=== PATIENT | female | born 1985 | race Caucasian/White ===

== ENCOUNTER 2016-10-23 14:03 | Emergency (ER) | payer MEDICAID ==
[~2016-10-23 14:03] MED LIST: CITA20TA9 PO; CYCL5TAB PO; DISU500T2 PO; RISP0.5T3 PO; SERT25TA3 PO
== END 2016-10-23 17:39 | disposition left against medical advice (07) ==
LOC: ED 17:34
DX: R07.81 Pleurodynia (principal); Z53.21 Procedure and treatment not carried out due to patient leaving prior to being seen by health care provider

== ENCOUNTER 2016-12-11 23:40 | Emergency (ER) | payer MEDICAID ==
[~2016-12-11] VITALS: Ht 162.6 cm; Wt 55.7 kg
[2016-12-11 23:49] VITALS: BP 115/77
== END 2016-12-12 00:41 | disposition home or self-care (01) ==
LOC: ED 23:59
DX: R07.0 Pain in throat (principal)
CPT/HCPCS: 99283

== ENCOUNTER 2016-12-12 12:55 | Emergency (ER) | payer MEDICAID ==
[~2016-12-12] VITALS: Ht 162.6 cm; Wt 55.5 kg
[2016-12-12 13:04] VITALS: BP 113/80
[2016-12-12] MEDS ORDERED: DEXAMETHASONE 4 MG TABLET PO ONE (13:30)
[2016-12-12] MEDS ORDERED: DEXAMETHASONE 4 MG TABLET ONE (13:43)
== END 2016-12-12 14:13 | disposition home or self-care (01) ==
LOC: ED 14:07
DX: J02.0 Streptococcal pharyngitis (principal)
CPT/HCPCS: 99283

== ENCOUNTER 2017-01-08 19:04 | Emergency (ER) | payer MEDICAID | END 2017-01-08 20:04 | LOC: ED 19:04 | DX: M79.641 Pain in right hand (principal) ==

== ENCOUNTER 2017-02-13 15:45 | Emergency (ER) | payer MEDICAID ==
[~2017-02-13] VITALS: Ht 162.6 cm; Wt 54.0 kg
[2017-02-13 15:49] VITALS: BP 112/74
== END 2017-02-13 17:11 | disposition home or self-care (01) ==
LOC: ED 16:40
DX: H60.591 Other noninfective acute otitis externa, right ear (principal)
CPT/HCPCS: 99283

== ENCOUNTER 2017-07-18 22:15 | Emergency (ER) | payer MEDICAID ==
[~2017-07-18] VITALS: Ht 162.6 cm; Wt 52.6 kg
[2017-07-18] MEDS ORDERED: HYDROcodone/APAP 5/325 TABLET PO ONE (23:00)
[2017-07-18] MEDS ORDERED: HYDROcodone/APAP 5/325 TABLET ONE (23:02)
[2017-07-18] MEDS ORDERED: THIA50TA PO (23:43)
[2017-07-18] MEDS ORDERED: MULT-516 PO (23:44)
[2017-07-18] MEDS ORDERED: ASCO100T5 PO (23:44)
[2017-07-19 00:31] VITALS: BP 111/75
== END 2017-07-19 00:34 | disposition home or self-care (01) ==
LOC: ED 23:59
DX: S20.212A Contusion of left front wall of thorax, initial encounter (principal); G89.11 Acute pain due to trauma; X58.XXXA Exposure to other specified factors, initial encounter; Y93.89 Activity, other specified; Y92.89 Other specified places as the place of occurrence of the external cause; Y99.8 Other external cause status
CPT/HCPCS: 71010; 99284

== ENCOUNTER 2017-09-25 17:17 | Emergency (ER) | payer MEDICAID ==
[~2017-09-25] VITALS: Ht 162.6 cm; Wt 56.0 kg
[~2017-09-25 17:17] MED LIST changes: +ASCO100T5 PO; +MULT-516 PO; +THIA50TA PO
[2017-09-25 17:30] VITALS: BP 122/76
[2017-09-25 18:29] LABS: RAPID INFLUENZA A Negative (Negative); RAPID INFLUENZA B Negative (Negative)
== END 2017-09-25 19:20 | disposition home or self-care (01) ==
LOC: ED 18:40
DX: J02.8 Acute pharyngitis due to other specified organisms (principal)
CPT/HCPCS: 71046; 87400; 99285

== ENCOUNTER 2017-11-08 19:44 | Emergency (ER) | payer MEDICAID ==
[~2017-11-08] VITALS: Ht 162.6 cm; Wt 57.5 kg
[2017-11-08 19:56] VITALS: BP 117/72
== END 2017-11-08 21:04 | disposition home or self-care (01) ==
LOC: ED 21:00
DX: L20.84 Intrinsic (allergic) eczema (principal); F10.220 Alcohol dependence with intoxication, uncomplicated; F17.210 Nicotine dependence, cigarettes, uncomplicated
CPT/HCPCS: 99283

== ENCOUNTER 2017-12-09 18:18 | Emergency (ER) | payer MEDICAID ==
[~2017-12-09] VITALS: Ht 162.6 cm; Wt 62.0 kg
[2017-12-09 18:21] VITALS: BP 111/70
[2017-12-09] MEDS ORDERED: DIPH,PERTUSS(ACELL),TET VAC/PF 0.5 ML IM-VACC ONE ×2 (18:59→19:00)
[2017-12-09] MEDS ORDERED: SILVER SULF. CRM 1% , 25GM ONE (18:59)
[2017-12-09] MEDS ORDERED: SILVER SULF. CRM 1% , 25GM TP ONE (19:00)
[2017-12-09] MEDS ORDERED: ACETAMINOPHEN 500 MG TABLET ONE (19:12)
[2017-12-09] MEDS ORDERED: IBUPROFEN 200 MG TABLET ONE (19:13)
[2017-12-09] MEDS ORDERED: ACETAMINOPHEN 500 MG TABLET PO ONE (19:30)
[2017-12-09] MEDS ORDERED: IBUPROFEN 200 MG TABLET PO ONE (19:30)
== END 2017-12-09 19:22 | disposition home or self-care (01) ==
LOC: ED 19:21
DX: T21.22XA Burn of second degree of abdominal wall, initial encounter (principal); T22.111A Burn of first degree of right forearm, initial encounter; T31.0 Burns involving less than 10% of body surface; F10.20 Alcohol dependence, uncomplicated; Z88.8 Allergy status to other drugs, medicaments and biological substances; X12.XXXA Contact with other hot fluids, initial encounter; Y93.89 Activity, other specified; Y92.89 Other specified places as the place of occurrence of the external cause; Y99.8 Other external cause status
CPT/HCPCS: 16025; 90471; 90715; 99284

== ENCOUNTER 2018-01-08 13:25 | Emergency (ER) | payer MEDICAID ==
[~2018-01-08] VITALS: Ht 162.6 cm; Wt 60.0 kg
[2018-01-08 13:34] VITALS: BP 119/80
[2018-01-08] MEDS ORDERED: DIPH,PERTUSS(ACELL),TET VAC/PF 0.5 ML IM-VACC ONE ×2 (13:55→14:00)
[2018-01-08] MEDS ORDERED: LIDOCAINE-MPF 2% ,5ML ONE (13:55)
[2018-01-08] MEDS ORDERED: LIDOCAINE 2%, 20ML SQ ONE (14:00)
[2018-01-08] MEDS ORDERED: BACITRACIN ZINC OINT 500U/GM, 0.9 GM ONE (14:37)
== END 2018-01-08 14:43 | disposition home or self-care (01) ==
LOC: ED 14:00
DX: S61.210A Laceration without foreign body of right index finger without damage to nail, initial encounter (principal); W25.XXXA Contact with sharp glass, initial encounter; Y93.89 Activity, other specified; Y99.8 Other external cause status; Y92.89 Other specified places as the place of occurrence of the external cause
CPT/HCPCS: 96372; 99283; J3490

== ENCOUNTER 2018-09-17 15:36 | Emergency (ER) | payer MEDICAID ==
[~2018-09-17] VITALS: Ht 162.6 cm; Wt 55.0 kg
[~2018-09-17 15:36] MED LIST changes: -THIA50TA PO; +THIA50TA4 PO
[2018-09-17] MEDS ORDERED: LORazepam 2 MG/ML, 1ML IVPush ONE (16:00)
[2018-09-17] MEDS ORDERED: LORazepam 2 MG/ML, 1ML ONE (16:22)
[2018-09-17 16:25] LABS: ALANINE AMINOTRANSFERASE 83 U/L (12-78); ALBUMIN 3.8 g/dL (3.4-5.0); ANION GAP 7 mmol/L (5-15); CALCIUM 8.7 mg/dL (8.5-10.1); CHLORIDE 109 mmol/L (98-107); CREATININE 0.67 mg/dL (0.55-1.02)
[2018-09-17 16:27] LABS: ALKALINE PHOSPHATASE 114 U/L (45-117); BILIRUBIN,TOTAL 0.9 mg/dL (0.2-1.0); TOTAL PROTEIN 7.7 g/dL (6.4-8.2)
[2018-09-17] MEDS ORDERED: CHLORDIAZEPOXIDE 25 MG CAPSULE ONE (16:47)
[2018-09-17 16:59] LABS: HCG UR SG 1.021 (1.003-1.030)
[2018-09-17] MEDS ORDERED: CHLORDIAZEPOXIDE 25 MG CAPSULE PO ONE (17:00)
[2018-09-17 17:08] LABS: MICROSCOPIC INDICATED
[2018-09-17 17:19] LABS: MEAN CORPUSCULAR HEMOGLOBIN 35.7 pg (27.0-34.8); MEAN CORPUSCULAR HGB CONC 33.4 g/dL (32.4-35.8); MEAN CORPUSCULAR VOLUME 106.6 fL (80-100); MEAN PLATELET VOLUME 8.4 fL (7.4-10.4); RED BLOOD COUNT 3.62 x10^6/uL (3.82-5.3); RED CELL DISTRIBUTION WIDTH 14.8 % (9.6-15.2)
[2018-09-17 17:19] LABS: CULTURE INDICATED? NO
[2018-09-17 17:21] LABS: PLATELET COUNT 69 x10^3/uL (130-400)
[2018-09-17 17:23] LABS: MD YES
[2018-09-17 17:28] LABS: BASOS#(MANUAL) 0.04 x10^3/uL (0-0.1); BASOS% (MANUAL) 2 % (0-1); EOS#(MANUAL) 0.02 x10^3/uL (0.0-0.4); EOS% (MANUAL) 1 % (1-7); LYMPH#(MANUAL) 0.88 x10^3/uL (1-3.4); LYMPHS% (MANUAL) 42 % (22-44); MONOS#(MANUAL) 0.19 x10^3/uL (0.3-2.7); MONOS% (MANUAL) 9 % (2-9); REACTIVE LYMPHS # (MANUAL) 0.02 x10^3/uL (0-0); REACTIVE LYMPHS % (MANUAL) 1 % (0-0); SEG#(MANUAL) 0.95 x10^3/uL (1.8-6.8); SEGS% (MANUAL) 45 % (42-75)
[2018-09-17 17:29] LABS: <PLATELET ESTIMATE> DECREASED; <PLT MORPHOLOGY> NORMAL PLT MORPH; ANISOCYTOSIS 1+; TOXIC GRAN 1+
--- NOTE | 2018-09-17 17:46 | NUR ---
pt resting on gurney, rr even and unlabored. vss. pt denies needs or pain att. awaiting lab and imaging results
--- NOTE | 2018-09-17 18:16 | NUR ---
PTS CHART UP FOR RECHECK
--- NOTE | 2018-09-17 19:34 | NUR ---
REPORT FROM ESTRADA HAIRSTON. PT RESTING IN ROOM. NO NEEDS AT THIS TIME.VSS. CALL LIGHT WITHIN REACH.
[2018-09-17 19:35] VITALS: BP 112/78
== END 2018-09-17 20:57 | disposition home or self-care (01) ==
LOC: ED 19:20
DX: F10.239 Alcohol dependence with withdrawal, unspecified (principal); F10.229 Alcohol dependence with intoxication, unspecified; R45.4 Irritability and anger; R45.1 Restlessness and agitation; Z88.8 Allergy status to other drugs, medicaments and biological substances
CPT/HCPCS: 36415; 80053; 80307; 81001; 81025; 85025; 96374; 99283; J2060

== ENCOUNTER 2018-11-13 20:40 | Emergency (ER) | payer MEDICAID ==
[~2018-11-13] VITALS: Ht 167.6 cm; Wt 58.6 kg
[2018-11-13 21:38] LABS: ALANINE AMINOTRANSFERASE 57 U/L (12-78); ANION GAP 12 mmol/L (5-15); CALCIUM 9.3 mg/dL (8.5-10.1); CHLORIDE 92 mmol/L (98-107); CREATININE 0.82 mg/dL (0.55-1.02)
[2018-11-13 21:42] LABS: ALKALINE PHOSPHATASE 90 U/L (45-117); BILIRUBIN,TOTAL 1.1 mg/dL (0.2-1.0); TOTAL PROTEIN 8.5 g/dL (6.4-8.2)
[2018-11-13 21:43] LABS: MEAN CORPUSCULAR HEMOGLOBIN 33.2 pg (27.0-34.8); MEAN CORPUSCULAR HGB CONC 34.6 g/dL (32.4-35.8); MEAN CORPUSCULAR VOLUME 95.8 fL (80-100); MEAN PLATELET VOLUME 8.8 fL (7.4-10.4); PLATELET COUNT 60 x10^3/uL (130-400); RED CELL DISTRIBUTION WIDTH 13.4 % (9.6-15.2)
[2018-11-13 21:44] LABS: MD YES
[2018-11-13] MEDS ORDERED: TRAZ-137 PO (21:47)
[2018-11-13] MEDS ORDERED: GABA-827 PO (21:47)
--- NOTE | 2018-11-13 21:50 | NUR ---
STATES VAGINAL BLEEDING SINCE THIS AM. MONITORS APPLIED, SIDERAILS UP X2, CALL LIGHT WITHIN REACH
[2018-11-13] MEDS ORDERED: LORazepam 2 MG/ML, 1ML IVPush ONE (22:30)
[2018-11-13] MEDS ORDERED: POTASSIUM CHLORIDE 20 MEQ in SODIUM CHLORIDE 0.9% 250 ML IV ONE (22:30)
[2018-11-13] MEDS ORDERED: MAGNESIUM SULFATE 1 GM, THIAMINE 100 MG, FOLIC ACID 1 MG, MVI ADULT 10 ML in SODIUM CHL... IV ONE (22:30)
[2018-11-13] MEDS ORDERED: SODIUM CHLORIDE FLUSH 10ML SYR IVF ONE (22:30)
[2018-11-13] MEDS ORDERED: ONDANSETRON 2MG/ML, 2ML IVPush ONE (22:30)
[2018-11-13] MEDS ORDERED: POTASSIUM CHLORIDE 20 MEQ TAB.ER.PRT PO ONE (22:30)
[2018-11-13 22:34] LABS: LYMPHS% (MANUAL) 41 % (22-44); MONOS#(MANUAL) 0.49 x10^3/uL (0.3-2.7); MONOS% (MANUAL) 8 % (2-9); REACTIVE LYMPHS # (MANUAL) 0.18 x10^3/uL (0-0); REACTIVE LYMPHS % (MANUAL) 3 % (0-0); SEG#(MANUAL) 2.93 x10^3/uL (1.8-6.8); SEGS% (MANUAL) 48 % (42-75)
[2018-11-13] MEDS ORDERED: LORazepam 2 MG/ML, 1ML ONE (22:34)
[2018-11-13] MEDS ORDERED: ONDANSETRON 2MG/ML, 2ML ONE (22:34)
[2018-11-13] MEDS ORDERED: POTASSIUM CHLORIDE 20 MEQ TAB.ER.PRT ONE (22:35)
[2018-11-13 22:36] LABS: <PLATELET ESTIMATE> DECREASED; <PLT MORPHOLOGY> NORMAL PLT MORPH; <RBC MORPHOLOGY> NORMAL
--- NOTE | 2018-11-13 22:40 | NUR ---
PT MEDICATE NAE MONIQUE
[2018-11-13 23:10] LABS: MICROSCOPIC INDICATED
[2018-11-13 23:11] LABS: CULTURE INDICATED? YES
--- NOTE | 2018-11-14 00:26 | NUR ---
PT RESTING CALM, IV FLUIDS INFUSING. MONITORS IN PLACE, CALL ALEX HUNTER, DENIES NEEDS
[2018-11-14] MEDS ORDERED: POTASSIUM CHLORIDE 20 MEQ TAB.ER.PRT ONE (00:44)
[2018-11-14] MEDS ORDERED: POTASSIUM CHLORIDE 20 MEQ TAB.ER.PRT PO ONE (01:00)
--- NOTE | 2018-11-14 01:53 | NUR ---
PT RESTING WITH EES CLOSED, NADN, EQUAL CHEST RISE/FALL OBSERVED, IV FLUIDS INFUSING, CALL LIGHT WITHIN REACH
[2018-11-14 04:11] VITALS: BP 99/67
--- NOTE | 2018-11-14 04:12 | NUR ---
PT RESTING WITH EES CLOSED, NAD, EQUAL CHEST RISE/FALL OBSERVED. IV FLUIDS INFUSING, MONITORS IN PLACE, SIDERAILS UP X2, CALL LIGHT WITHIN REACH
== END 2018-11-14 04:25 | disposition home or self-care (01) ==
LOC: ED 22:58
DX: N93.8 Other specified abnormal uterine and vaginal bleeding (principal); D69.49 Other primary thrombocytopenia; R45.4 Irritability and anger; E87.6 Hypokalemia; R11.2 Nausea with vomiting, unspecified; F10.239 Alcohol dependence with withdrawal, unspecified; F17.210 Nicotine dependence, cigarettes, uncomplicated; Z88.8 Allergy status to other drugs, medicaments and biological substances
CPT/HCPCS: 36415; 76830; 80053; 81001; 83735; 84703; 85025; 87077; 87086; 87186; 96365; 96366; 96368; 96375; 99284; J2060; J2405; J3411; J3475; J3480; J7030; J7050

== ENCOUNTER 2019-01-03 18:09 | Emergency (ER) | payer MEDICAID ==
[~2019-01-03] VITALS: Ht 162.6 cm; Wt 66.2 kg
[~2019-01-03 18:09] MED LIST changes: +GABA-827 PO; +TRAZ-137 PO
[2019-01-03 18:27] VITALS: BP 116/73
[2019-01-03 19:13] LABS: BASOPHILS # (AUTO) 0.02 x10^3/uL (0-0.1); BASOPHILS % (AUTO) 1 % (0-1); EOSINOPHILS % (AUTO) 2 % (1-7); LYMPHOCYTES # (AUTO) 1.51 x10^3/uL (1-3.4); LYMPHOCYTES % (AUTO) 33 % (22-44); MD NO; MEAN CORPUSCULAR HEMOGLOBIN 32.2 pg (27.0-34.8); MEAN CORPUSCULAR HGB CONC 33.4 g/dL (32.4-35.8); MEAN CORPUSCULAR VOLUME 96.2 fL (80-100); MEAN PLATELET VOLUME 10.8 fL (7.4-10.4); MONOCYTES % (AUTO) 7 % (2-9); NEUTROPHILS % (AUTO) 57 % (42-75); PLATELET COUNT 125 x10^3/uL (130-400); RED BLOOD COUNT 3.86 x10^6/uL (3.82-5.3); RED CELL DISTRIBUTION WIDTH 13.5 % (9.6-15.2)
[2019-01-03 19:16] LABS: ALBUMIN 3.8 g/dL (3.4-5.0); ANION GAP 7 mmol/L (5-15); CALCIUM 8.9 mg/dL (8.5-10.1); CHLORIDE 109 mmol/L (98-107)
--- NOTE | 2019-01-03 20:04 | NUR ---
PT BROUGHT BACK TO ROOM, PHYSICIAN AT BEDSIDE.
[2019-01-03 20:27] LABS: INTERNATIONAL NORMALIZED RATIO 1.06 (0.93-1.1); PROTHROMBIN TIME 11.1 Seconds (9.6-11.5)
[2019-01-03] MEDS ORDERED: ACETAMINOPHEN 500 MG TABLET PO ONE (20:30)
[2019-01-03] MEDS ORDERED: IBUPROFEN 600 MG TABLET PO ONE (20:30)
[2019-01-03 20:48] LABS: MICROSCOPIC AUTO
[2019-01-03 20:49] LABS: CULTURE INDICATED? NO
--- NOTE | 2019-01-03 20:53 | NUR ---
PT REFUSED TYLENOL. DR MCCURDY NOTIFIED.
--- NOTE | 2019-01-03 21:20 | NUR ---
Patient/Caregiver given discharge instructions and they have confirmed that they understand the instructions. Patient ambulatory with steady gait.
== END 2019-01-03 21:22 | disposition home or self-care (01) ==
LOC: ED 20:08
DX: N93.8 Other specified abnormal uterine and vaginal bleeding (principal); N92.4 Excessive bleeding in the premenopausal period; F10.10 Alcohol abuse, uncomplicated; F32.9 Major depressive disorder, single episode, unspecified
CPT/HCPCS: 36415; 76830; 80048; 81001; 82040; 84702; 85025; 85610; 99284

== ENCOUNTER 2019-01-23 20:53 | Emergency (ER) | payer MEDICAID ==
[~2019-01-23] VITALS: Ht 162.6 cm; Wt 64.0 kg
[2019-01-23 21:01] VITALS: BP 106/59
--- NOTE | 2019-01-23 21:27 | NUR ---
VAISHALI. REPORT RECEIVED FROM EMS. +ETOH. PT STATES "I DON'T FEEL GOOD." HX OF MRSA. PT C/O CHRONIC MACHADO/NECK PAIN. DENIES N/V/D AT THIS TIME. PT'S AOX4. RESPS EVEN AND UNLABORED. DENIES SI/HI. PA AT BEDSIDE TO EVALUATE AT THIS TIME.
[2019-01-23] MEDS ORDERED: LORazepam 1MG TABLET PO ONE (21:30)
[2019-01-23] MEDS ORDERED: LORazepam 1MG TABLET ONE (21:31)
--- NOTE | 2019-01-23 21:37 | NUR ---
PT AMB TO BR AND BACK TO ROOM WITH STEADY GAIT. UA SENT.
--- NOTE | 2019-01-23 21:37 | NUR ---
PT MEDICATED PER EMAR. PT TOLERATED WELL.
[2019-01-23 21:39] LABS: MEAN CORPUSCULAR HEMOGLOBIN 31.8 pg (27.0-34.8); MEAN CORPUSCULAR HGB CONC 33.5 g/dL (32.4-35.8); MEAN CORPUSCULAR VOLUME 94.8 fL (80-100); MEAN PLATELET VOLUME 9.5 fL (7.4-10.4); PLATELET COUNT 192 x10^3/uL (130-400); RED BLOOD COUNT 4.68 x10^6/uL (3.82-5.3); RED CELL DISTRIBUTION WIDTH 13.1 % (9.6-15.2)
[2019-01-23 21:52] LABS: ALANINE AMINOTRANSFERASE 34 U/L (12-78); ALBUMIN 4.3 g/dL (3.4-5.0); ANION GAP 10 mmol/L (5-15); CALCIUM 9.2 mg/dL (8.5-10.1); CHLORIDE 109 mmol/L (98-107); CREATININE 0.72 mg/dL (0.55-1.02)
[2019-01-23 21:53] LABS: HCG UR SG 1.023 (1.003-1.030)
[2019-01-23 21:54] LABS: CULTURE INDICATED? YES; MICROSCOPIC INDICATED
[2019-01-23 21:55] LABS: ALKALINE PHOSPHATASE 66 U/L (45-117); BILIRUBIN,TOTAL 0.5 mg/dL (0.2-1.0)
[2019-01-23 21:59] LABS: MD YES
[2019-01-23 22:03] LABS: BASOS#(MANUAL) 0.06 x10^3/uL (0-0.1); BASOS% (MANUAL) 1 % (0-1); EOS#(MANUAL) 0.06 x10^3/uL (0.0-0.4); EOS% (MANUAL) 1 % (1-7); LYMPH#(MANUAL) 4.53 x10^3/uL (1-3.4); LYMPHS% (MANUAL) 73 % (22-44); MONOS#(MANUAL) 0.12 x10^3/uL (0.3-2.7); MONOS% (MANUAL) 2 % (2-9); SEG#(MANUAL) 1.43 x10^3/uL (1.8-6.8); SEGS% (MANUAL) 23 % (42-75)
[2019-01-23 22:04] LABS: <PLATELET ESTIMATE> ADEQUATE; <PLT MORPHOLOGY> NORMAL PLT MORPH; <RBC MORPHOLOGY> NORMAL
--- NOTE | 2019-01-23 22:47 | NUR ---
PT GIVEN DC INSTRUCTIONS AND SCRIPTS. PT EDUCATED REGARDING DC MEDICATIONS. PT'S AOX4. RESPS EVEN AND UNLABORED. PT AMB TO DC WITH STEADY GAIT. NO ACUTE DISTRESS AT DC.
== END 2019-01-23 22:48 | disposition home or self-care (01) ==
LOC: ED 21:17
DX: F10.120 Alcohol abuse with intoxication, uncomplicated (principal); N39.0 Urinary tract infection, site not specified; Z72.9 Problem related to lifestyle, unspecified; F17.200 Nicotine dependence, unspecified, uncomplicated
CPT/HCPCS: 36415; 80053; 81001; 81025; 85025; 87086; 87186; 99283

== ENCOUNTER 2019-01-31 22:58 | Emergency (ER) | payer MEDICAID ==
[~2019-01-31] VITALS: Ht 162.6 cm; Wt 58.5 kg
[2019-01-31] MEDS ORDERED: ONDANSETRON ODT 4 MG ONE (23:06)
--- NOTE | 2019-01-31 23:24 | NUR ---
CALLED FOR ROOM, NO ANSWER AT THIS TIME. WILL RECALL
[2019-01-31] MEDS ORDERED: ONDANSETRON ODT 4 MG PO ONE (23:30)
--- NOTE | 2019-02-01 00:06 | NUR ---
PT AMBULATES FROM LOBBY TO ROOM
[2019-02-01] MEDS ORDERED: LORazepam 1MG TABLET ONE (00:21)
[2019-02-01] MEDS ORDERED: THIAMINE 100MG TABLET ONE (00:22)
--- NOTE | 2019-02-01 00:28 | NUR ---
PT MEDICATED PER OCT. PT AMBULATES TO RESTROOM WITH STEADY GAIT TO PROVIDE UA.
[2019-02-01] MEDS ORDERED: LORazepam 1MG TABLET PO ONE (00:30)
[2019-02-01] MEDS ORDERED: THIAMINE 100MG TABLET PO ONE (00:30)
[2019-02-01 00:38] LABS: ALANINE AMINOTRANSFERASE 112 U/L (12-78); ALBUMIN 4.4 g/dL (3.4-5.0); ANION GAP 14 mmol/L (5-15); CALCIUM 9.5 mg/dL (8.5-10.1); CHLORIDE 103 mmol/L (98-107); CREATININE 0.85 mg/dL (0.55-1.02)
[2019-02-01 00:49] LABS: ALKALINE PHOSPHATASE 79 U/L (45-117); BILIRUBIN,TOTAL 0.8 mg/dL (0.2-1.0); TOTAL PROTEIN 8.7 g/dL (6.4-8.2)
--- NOTE | 2019-02-01 00:49 | NUR ---
Lala yusuf in ED - 02/01/19 at 0050 by LYNN URINE COLLECTED AND SENT TO LAB. REPORT OF PT TO ESTRADA CLAY AT THIS TIME.
--- NOTE | 2019-02-01 00:50 | NUR ---
URINE COLLECTED AND SENT TO LAB. REPORT OF PT TO ESTRADA CLAY AT THIS TIME.
--- NOTE | 2019-02-01 00:54 | NUR ---
REPORT FROM LUCINDA DORADO. PT RESTING WAITING FOR LABS. CALL LIGHT IN REACH
[2019-02-01 01:01] LABS: CULTURE INDICATED? YES; MICROSCOPIC INDICATED
--- NOTE | 2019-02-01 01:08 | NUR ---
LAB AT BEDSIDE TO REDRAW
[2019-02-01 01:28] VITALS: BP 110/70
[2019-02-01 01:38] LABS: MEAN CORPUSCULAR HGB CONC 33.9 g/dL (32.4-35.8); MEAN CORPUSCULAR VOLUME 94.1 fL (80-100); RED BLOOD COUNT 4.26 x10^6/uL (3.82-5.3); RED CELL DISTRIBUTION WIDTH 12.9 % (9.6-15.2)
[2019-02-01 01:39] LABS: MD YES
[2019-02-01 01:43] LABS: <PLATELET ESTIMATE> DECREASED; <PLT MORPHOLOGY> NORMAL PLT MORPH; <RBC MORPHOLOGY> NORMAL; EOS#(MANUAL) 0.03 x10^3/uL (0.0-0.4); EOS% (MANUAL) 1 % (1-7); LYMPH#(MANUAL) 1.43 x10^3/uL (1-3.4); LYMPHS% (MANUAL) 51 % (22-44); MONOS#(MANUAL) 0.03 x10^3/uL (0.3-2.7); MONOS% (MANUAL) 1 % (2-9); SEG#(MANUAL) 1.32 x10^3/uL (1.8-6.8); SEGS% (MANUAL) 47 % (42-75)
[2019-02-01 01:45] LABS: MEAN PLATELET VOLUME 9.3 fL (7.4-10.4)
[2019-02-01 01:47] LABS: PLATELET COUNT 36 x10^3/uL (130-400)
--- NOTE | 2019-02-01 02:28 | NUR ---
Patient given discharge instructions and they have confirmed that they understand the instructions. Patient ambulatory with steady gait.
== END 2019-02-01 02:30 | disposition home or self-care (01) ==
LOC: ED 23:58
DX: F10.120 Alcohol abuse with intoxication, uncomplicated (principal); Z72.9 Problem related to lifestyle, unspecified; F32.9 Major depressive disorder, single episode, unspecified; F17.200 Nicotine dependence, unspecified, uncomplicated
CPT/HCPCS: 36415; 80053; 80307; 81001; 83690; 85025; 87077; 87086; 87186; 99284; Q0162

== ENCOUNTER 2019-09-12 22:00 | Emergency (ER) | payer MEDICAID ==
[~2019-09-12] VITALS: Ht 162.6 cm; Wt 55.0 kg
[~2019-09-12 22:00] MED LIST changes: +SERT25TA PO; -TRAZ-137 PO; +TRAZ-175 PO
--- NOTE | 2019-09-12 22:06 | NUR ---
[facility] THE SAME COMPLAINT. RECEIVED LIBRIUM PO. UPON DC FROM [facility], SHE CLAIMS TO HAVE HAD A COUPLE OF SHOTS OF ALCOHOL. WANTS TO RECEIVE WITHDRAWAL TREATMENT. REFUSED TO GO TO [facility] PROVIDED BY [facility].
--- NOTE | 2019-09-12 23:17 | NUR ---
PT RESTING IN CHAIR, NAD, RESPIRATIONS EVEN AND UNLABORED. ERP AT PT'S SIDE FOR EVAL
[2019-09-12 23:18] VITALS: BP 104/74
--- NOTE | 2019-09-12 23:23 | NUR ---
SEEN BY . AWAITING FOR DC PAPERWORK
--- NOTE | 2019-09-12 23:28 | NUR ---
D/C REVIEWED WITH PT, PT REFUSED TO TAKE D/C PAPERS, PT CALLED [facility] FOR [facility] HOME
== END 2019-09-12 23:51 | disposition home or self-care (01) ==
LOC: ED 23:40
DX: F10.129 Alcohol abuse with intoxication, unspecified (principal); Z72.9 Problem related to lifestyle, unspecified
CPT/HCPCS: 99283

== ENCOUNTER 2019-10-03 13:09 | Emergency (ER) | payer MEDICAID ==
[~2019-10-03] VITALS: Ht 162.6 cm; Wt 58.0 kg
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
[2019-10-03 14:08] VITALS: BP 110/69
--- NOTE | 2019-10-03 14:08 | NUR ---
MD REMOVED C COLLAR. PT AMBUALTED TO BATHROOM.
--- NOTE | 2019-10-03 15:24 | NUR ---
TASK RN: Patient/Caregiver given discharge instructions and they have confirmed that they understand the instructions. Patient ambulatory with steady gait. PT LEFT WITH ALL PERSONAL BELONGINGS, INCLUDING HER SUITCASE.
[2019-10-03] MEDS ORDERED: DIAZEPAM 5 MG TABLET PO ONE (15:30)
[2019-10-03] MEDS ORDERED: KETOROLAC 30 MG/1 ML IM ONE (15:30)
== END 2019-10-03 15:27 | disposition home or self-care (01) ==
LOC: ED 15:00
DX: S16.1XXA Strain of muscle, fascia and tendon at neck level, initial encounter (principal); G43.909 Migraine, unspecified, not intractable, without status migrainosus; F17.210 Nicotine dependence, cigarettes, uncomplicated; V49.49XA Driver injured in collision with other motor vehicles in traffic accident, initial encounter; Y93.89 Activity, other specified; Y92.410 Unspecified street and highway as the place of occurrence of the external cause; Y99.8 Other external cause status
CPT/HCPCS: 72040; 99283

== ENCOUNTER 2019-12-30 01:36 | Emergency (ER) | payer SELFPAY ==
[2019-12-30 01:44] VITALS: BP 107/78
[2019-12-30] MEDS ORDERED: IBUPROFEN 200 MG TABLET ONE (02:28)
[2019-12-30] MEDS ORDERED: AZITHROMYCIN 500 MG TABLET ONE (02:28)
[2019-12-30] MEDS ORDERED: CEFTRIAXONE 250 MG ONE (02:28)
[2019-12-30] MEDS ORDERED: AZITHROMYCIN 500 MG TABLET PO ONE (02:30)
[2019-12-30] MEDS ORDERED: CEFTRIAXONE 250 MG IM ONE (02:30)
[2019-12-30] MEDS ORDERED: IBUPROFEN 200 MG TABLET PO ONE (02:30)
[2019-12-30 02:48] LABS: ALANINE AMINOTRANSFERASE 36 U/L (12-78); ALBUMIN 3.1 g/dL (3.4-5.0); ANION GAP 7 mmol/L (5-15); CALCIUM 8.6 mg/dL (8.5-10.1); CHLORIDE 113 mmol/L (98-107); CREATININE 0.69 mg/dL (0.55-1.02)
[2019-12-30 02:50] LABS: ALKALINE PHOSPHATASE 95 U/L (45-117); BILIRUBIN,TOTAL 0.7 mg/dL (0.2-1.0); TOTAL PROTEIN 7.6 g/dL (6.4-8.2)
[2019-12-30 02:55] LABS: MICROSCOPIC INDICATED
[2019-12-30] MEDS ORDERED: POTASSIUM CHLORIDE 20 MEQ TAB.ER.PRT ONE (03:06)
[2019-12-30 03:09] LABS: MEAN CORPUSCULAR HEMOGLOBIN 32.4 pg (27.0-34.8); MEAN CORPUSCULAR HGB CONC 33.3 g/dL (32.4-35.8); MEAN CORPUSCULAR VOLUME 97.4 fL (80-100); MEAN PLATELET VOLUME 9.6 fL (7.4-10.4); RED BLOOD COUNT 3.76 x10^6/uL (3.82-5.3); RED CELL DISTRIBUTION WIDTH 14.9 % (9.6-15.2)
[2019-12-30 03:10] LABS: PLATELET COUNT 22 x10^3/uL (130-400)
[2019-12-30 03:13] LABS: BASOPHILS # (AUTO) 0.05 x10^3/uL (0-0.1); BASOPHILS % (AUTO) 1 % (0-1); EOSINOPHILS # (AUTO) 0.04 x10^3/uL (0-0.4); EOSINOPHILS % (AUTO) 1 % (1-7); LYMPHOCYTES # (AUTO) 1.25 x10^3/uL (1-3.4); LYMPHOCYTES % (AUTO) 36 % (22-44); MD SCAN; MONOCYTES # (AUTO) 0.29 x10^3/uL (0.2-0.8); MONOCYTES % (AUTO) 9 % (2-9); NEUTROPHILS # (AUTO) 1.82 x10^3/uL (1.8-6.8); NEUTROPHILS % (AUTO) 53 % (42-75)
[2019-12-30] MEDS ORDERED: POTASSIUM CHLORIDE 20 MEQ TAB.ER.PRT PO ONE (03:30)
== END 2019-12-30 04:53 | disposition home or self-care (01) ==
LOC: ED 02:26
DX: A56.01 Chlamydial cystitis and urethritis (principal); A54.01 Gonococcal cystitis and urethritis, unspecified; E87.6 Hypokalemia; R94.31 Abnormal electrocardiogram [ECG] [EKG]; F10.129 Alcohol abuse with intoxication, unspecified; F15.129 Other stimulant abuse with intoxication, unspecified; F41.1 Generalized anxiety disorder; Z00.00 Encounter for general adult medical examination without abnormal findings; Y90.0 Blood alcohol level of less than 20 mg/100 ml
CPT/HCPCS: 36415; 80053; 80307; 81001; 83690; 85025; 87077; 87086; 87186; 87491; 87591; 93005; 96372; 99284; J0696

== ENCOUNTER 2020-04-03 14:03 | Emergency (ER) | payer MEDICAID ==
[~2020-04-03] VITALS: Ht 162.6 cm; Wt 58.5 kg
[2020-04-03 14:10] VITALS: BP 122/88
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
== END 2020-04-03 14:54 | disposition left against medical advice (07) ==
LOC: ED 14:15
DX: R79.9 Abnormal finding of blood chemistry, unspecified (principal); Z53.21 Procedure and treatment not carried out due to patient leaving prior to being seen by health care provider

== ENCOUNTER 2020-04-08 23:08 | Emergency (ER) | payer MEDICAID ==
[~2020-04-08] VITALS: Ht 162.6 cm; Wt 60.2 kg
[2020-04-08 23:51] LABS: ALBUMIN 3.1 g/dL (3.4-5.0); ANION GAP 8 mmol/L (5-15); CALCIUM 8.7 mg/dL (8.5-10.1); CHLORIDE 110 mmol/L (98-107)
[2020-04-08 23:55] LABS: ALANINE AMINOTRANSFERASE 40 U/L (12-78); ALKALINE PHOSPHATASE 110 U/L (45-117); BILIRUBIN,TOTAL 0.8 mg/dL (0.2-1.0); CREATININE 0.71 mg/dL (0.55-1.02); TOTAL PROTEIN 7.5 g/dL (6.4-8.2)
[2020-04-09] LABS: MEAN CORPUSCULAR HEMOGLOBIN 32.7 pg (27.0-34.8); MEAN CORPUSCULAR HGB CONC 32.8 g/dL (32.4-35.8); MEAN CORPUSCULAR VOLUME 99.5 fL (80-100); RED BLOOD COUNT 3.72 x10^6/uL (3.82-5.3); RED CELL DISTRIBUTION WIDTH 13.4 % (9.6-15.2)
[2020-04-09 00:01] LABS: BASOPHILS # (AUTO) 0.04 x10^3/uL (0-0.1); BASOPHILS % (AUTO) 1 % (0-1); EOSINOPHILS # (AUTO) 0.06 x10^3/uL (0-0.4); EOSINOPHILS % (AUTO) 2 % (1-7); LYMPHOCYTES # (AUTO) 1.45 x10^3/uL (1-3.4); LYMPHOCYTES % (AUTO) 41 % (22-44); MD SCAN; MEAN PLATELET VOLUME 10.1 fL (7.4-10.4); MONOCYTES # (AUTO) 0.27 x10^3/uL (0.2-0.8); MONOCYTES % (AUTO) 8 % (2-9); NEUTROPHILS # (AUTO) 1.75 x10^3/uL (1.8-6.8); NEUTROPHILS % (AUTO) 49 % (42-75); PLATELET COUNT 70 x10^3/uL (130-400)
[2020-04-09] MEDS ORDERED: POTASSIUM CHLORIDE 20 MEQ TAB.ER.PRT ONE (02:04)
[2020-04-09 02:09] VITALS: BP 119/71
--- NOTE | 2020-04-09 02:10 | NUR ---
pt back to room at this time. pt medicated per oct. pt to be dc'd. pt nad, vss, wctm. waiting for dc paperwork
--- NOTE | 2020-04-09 02:23 | NUR ---
Patient given discharge instructions and they have confirmed that they understand the instructions. Patient ambulatory with steady gait. NAD, vss, given taxi voucher per request. denies additional questions or needs at this time. no belongings left in room after dc.
[2020-04-09] MEDS ORDERED: POTASSIUM CHLORIDE 20 MEQ TAB.ER.PRT PO ONE (02:30)
== END 2020-04-09 02:25 | disposition home or self-care (01) ==
LOC: ED 04-09 01:00
DX: F10.120 Alcohol abuse with intoxication, uncomplicated (principal); D72.819 Decreased white blood cell count, unspecified; E87.6 Hypokalemia; Z72.9 Problem related to lifestyle, unspecified; R00.0 Tachycardia, unspecified; F17.210 Nicotine dependence, cigarettes, uncomplicated; Y90.9 Presence of alcohol in blood, level not specified
CPT/HCPCS: 36415; 80053; 85025; 99283; 99406

== ENCOUNTER 2020-04-10 21:20 | Inpatient (IN) | payer MEDICAID ==
[~2020-04-10] VITALS: Ht 162.6 cm; Wt 60.2 kg
--- NOTE | 2020-04-10 21:36 | NUR ---
PT REFUSES TYLENOL IN TRAIGE.
[2020-04-10] MEDS ORDERED: SODIUM CHLORIDE 0.9% 1,000ML IVBOLUS ONE (22:00)
[2020-04-10] MEDS ORDERED: SODIUM CHLORIDE FLUSH 10ML SYR IVF ONE (22:00)
[2020-04-10 23:22] LABS: ALANINE AMINOTRANSFERASE 42 U/L (12-78); ALBUMIN 3.1 g/dL (3.4-5.0); ANION GAP 11 mmol/L (5-15); CALCIUM 8.4 mg/dL (8.5-10.1); CHLORIDE 104 mmol/L (98-107); CREATININE 0.86 mg/dL (0.55-1.02)
[2020-04-10 23:24] LABS: ALKALINE PHOSPHATASE 114 U/L (45-117); TOTAL PROTEIN 7.6 g/dL (6.4-8.2)
[2020-04-10 23:50] LABS: MEAN CORPUSCULAR HEMOGLOBIN 32.5 pg (27.0-34.8); MEAN CORPUSCULAR HGB CONC 33.4 g/dL (32.4-35.8); MEAN CORPUSCULAR VOLUME 97.5 fL (80-100); RED BLOOD COUNT 3.74 x10^6/uL (3.82-5.3); RED CELL DISTRIBUTION WIDTH 13.2 % (9.6-15.2)
[2020-04-10 23:51] LABS: PLATELET COUNT 29 x10^3/uL (130-400)
[2020-04-10 23:53] LABS: BASOPHILS % (AUTO) 0 % (0-1); EOSINOPHILS % (AUTO) 0 % (1-7); LYMPHOCYTES # (AUTO) 0.32 x10^3/uL (1-3.4); LYMPHOCYTES % (AUTO) 5 % (22-44); MD SCAN; MONOCYTES # (AUTO) 0.31 x10^3/uL (0.2-0.8); MONOCYTES % (AUTO) 5 % (2-9); NEUTROPHILS # (AUTO) 5.25 x10^3/uL (1.8-6.8); NEUTROPHILS % (AUTO) 89 % (42-75)
[2020-04-11] MEDS ORDERED: CEFTRIAXONE PMX 1GM/50ML 50 ML IV ONE
[2020-04-11] MEDS ORDERED: LORazepam 2 MG/ML, 1ML IVPush ONE
[2020-04-11] MEDS ORDERED: POTASSIUM CHLORIDE 10% 40 MEQ/30 ML UDC PO ONE
[2020-04-11] MEDS ORDERED: LORazepam 2 MG/ML, 1ML ONE (00:18)
[2020-04-11] MEDS ORDERED: CEFTRIAXONE PMX 1GM/50ML 50 ML ONE (00:18)
--- NOTE | 2020-04-11 00:50 | NUR ---
LATE ENTRY/ PT CARE: PT BACK TO THIS RN ROOM. PT REFUSING TO TELL RN WHY SHE IS HERE OR WHAT SYMPTOMS SHE IS HAVING BECAUSE SHE IS "DYING OF THIRST RIGHT NOW AND YOU ALL ASK THE SAME FUCKING QUESTIONS". PT NAD, SKIN HOT TO TOUCH, STATES "I NEED MORE BLANKETS RIGHT NOW, CANT YOU SEE I AM FUCKING COLD." PT PLACED ON SPO2/BP/ECG MONITORING. WCTM.
[2020-04-11] MEDS ORDERED: POTASSIUM CHLORIDE 20 MEQ TAB.ER.PRT PO ONE (01:00)
[2020-04-11] MEDS ORDERED: POTASSIUM CHLORIDE 20 MEQ TAB.ER.PRT ONE (01:04)
--- NOTE | 2020-04-11 01:47 | NUR ---
PT AMBULATED TO AND FROM RESTROOM WITH A SMOOTH AND STEADY GAIT, NAD, GIVEN PILLOW FOR COMFORT, DENIES ADDITIONAL NEEDS AND "JUST WANT TO SLEEP". PT NAD, CALL LIGHT ON LAP, MEDICATED PER OCT. WCTM.
[2020-04-11] MEDS ORDERED: SODIUM CHLORIDE 0.9% 1,000ML IVBOLUS ONE (02:00)
[2020-04-11 02:14] LABS: AMPHETAMINE SCREEN, URINE Positive (Negative); BARBITURATE SCREEN, URINE Negative (Negative); BENZODIAZEPINE SCREEN, URINE Positive (Negative); CANNABINOID SCREEN, URINE Negative (Negative); COCAINE SCREEN, URINE Negative (Negative); METHADONE SCREEN, URINE Negative (Negative); OPIATE SCREEN, URINE Negative (Negative)
[2020-04-11 02:26] LABS: MICROSCOPIC INDICATED
--- NOTE | 2020-04-11 02:45 | NUR ---
PT RESTING ON GURNEY, STATES "I AM MISERABLE" RN EXPLAINED TO PT WHY WE ARE HOLDING OFF ON MORE BLANKETS DUE TO FEVER. PT STATES THAT "I DONT CARE." PT NAD, WCTM. WAITING FOR ADMIT BED.
[2020-04-11] MEDS ORDERED: ACETAMINOPHEN 500 MG TABLET PO ONE (03:00)
[2020-04-11] MEDS ORDERED: ACETAMINOPHEN 500 MG TABLET ONE (03:25)
[2020-04-11] MEDS ORDERED: HEPARIN 5,000 UNITS/ML, 1ML SQ SCH (03:30)
[2020-04-11] MEDS ORDERED: ONDANSETRON 2MG/ML, 2ML IVPush PRN (03:30)
[2020-04-11] MEDS ORDERED: DOCUSATE 100 MG CAPSULE PO PRN (03:30)
--- NOTE | 2020-04-11 03:30 | NUR ---
LATE ENTRY D/T PT CARE: PT MEDICATED PER MAR FOR FEVER. PT C/O BEING COLD, PT INFORMED OF WHY WE CANT GIVE HER MORE BLANKETS AT THIS TIME. WCTM.
[2020-04-11] MEDS ORDERED: LORazepam 2 MG/ML, 1ML IV PRN (04:00)
--- NOTE | 2020-04-11 04:05 | NUR ---
REPORT CALLED TO TOMY DORADO, [facility] CONSULTED REGARD CIWA SCALE. PT NAD, NO CHANGE IN CONDITION.
[2020-04-11 04:09] VITALS: BP 87/50
[2020-04-11] MEDS: KETOROLAC 30 MG/1 ML IV PRN (04:11)
[2020-04-11] MEDS: SODIUM CHLORIDE 0.9% 1,000 ML IV SCH ×2 (04:17→13:00)
[2020-04-11 07:50] VITALS: BP 108/72
[2020-04-11] MEDS: SERTRALINE 50MG TABLET PO SCH (07:55)
[2020-04-11] MEDS: GABAPENTIN 100 MG CAPSULE PO SCH ×3 (07:56→21:25)
[2020-04-11] MEDS: NICOTINE 14MG/24 HR PATCH.TD24 TD SCH (07:58)
[2020-04-11] MEDS: LORazepam 2 MG/ML, 1ML IV PRN ×4 (08:12→21:25)
[2020-04-11 13:30] VITALS: BP 111/78
[2020-04-11] MEDS: TRAZODONE 50MG TABLET PO SCH (21:00)
[2020-04-11 21:30] VITALS: BP 97/62
[2020-04-12] MEDS: KETOROLAC 30 MG/1 ML IV PRN (00:34)
[2020-04-12] MEDS: CEFTRIAXONE PMX 1GM/50ML 50 ML IV SCH (00:35)
[2020-04-12 00:48] VITALS: BP 102/67
[2020-04-12] MEDS: LORazepam 2 MG/ML, 1ML IV PRN ×6 (00:53→21:53)
[2020-04-12 06:28] LABS: CHLORIDE 109 mmol/L (98-107)
[2020-04-12 06:29] LABS: MEAN CORPUSCULAR HGB CONC 33.9 g/dL (32.4-35.8); MEAN CORPUSCULAR VOLUME 97.4 fL (80-100); MEAN PLATELET VOLUME 10.8 fL (7.4-10.4); RED BLOOD COUNT 3.38 x10^6/uL (3.82-5.3); RED CELL DISTRIBUTION WIDTH 13.2 % (9.6-15.2)
[2020-04-12 06:34] LABS: PLATELET COUNT 24 x10^3/uL (130-400)
[2020-04-12 06:35] LABS: ANION GAP 6 mmol/L (5-15); CALCIUM 7.7 mg/dL (8.5-10.1); CREATININE 0.64 mg/dL (0.55-1.02)
[2020-04-12 06:47] LABS: BASOPHILS # (AUTO) 0.01 x10^3/uL (0-0.1); BASOPHILS % (AUTO) 0 % (0-1); EOSINOPHILS % (AUTO) 0 % (1-7); LYMPHOCYTES # (AUTO) 0.85 x10^3/uL (1-3.4); LYMPHOCYTES % (AUTO) 18 % (22-44); MD SCAN; MONOCYTES # (AUTO) 0.41 x10^3/uL (0.2-0.8); MONOCYTES % (AUTO) 8 % (2-9); NEUTROPHILS # (AUTO) 3.56 x10^3/uL (1.8-6.8); NEUTROPHILS % (AUTO) 74 % (42-75)
[2020-04-12 07:25] VITALS: BP 112/74
[2020-04-12] MEDS: SERTRALINE 50MG TABLET PO SCH (08:06)
[2020-04-12] MEDS: GABAPENTIN 100 MG CAPSULE PO SCH ×3 (08:06→21:00)
[2020-04-12] MEDS: NICOTINE 14MG/24 HR PATCH.TD24 TD SCH (08:06)
[2020-04-12] MEDS: ACETAMINOPHEN 325 MG TABLET PO PRN ×2 (08:06→21:55)
[2020-04-12] MEDS ORDERED: MAGNESIUM SULFATE PMX 4GM/100M 100 ML IV ONE (08:30)
[2020-04-12] MEDS: BUTALB/APAP/CAFFEINE 50MG/325MG/40MG PO PRN (08:40)
[2020-04-12 13:12] VITALS: BP 104/72
[2020-04-12 19:54] VITALS: BP 98/63
[2020-04-12] MEDS ORDERED: GABAPENTIN 400 MG CAPSULE ONE (21:49)
[2020-04-12] MEDS: TRAZODONE 50MG TABLET PO SCH (21:54)
[2020-04-13 00:35] VITALS: BP 99/63
[2020-04-13] MEDS: CEFTRIAXONE PMX 1GM/50ML 50 ML IV SCH (02:00)
[2020-04-13 07:35] VITALS: BP 102/71
[2020-04-13] MEDS: GABAPENTIN 100 MG CAPSULE PO SCH ×3 (08:16→20:11)
[2020-04-13] MEDS: SERTRALINE 50MG TABLET PO SCH (08:16)
[2020-04-13] MEDS: ACETAMINOPHEN 325 MG TABLET PO PRN (08:16)
[2020-04-13] MEDS: NICOTINE 14MG/24 HR PATCH.TD24 TD SCH (08:20)
[2020-04-13] MEDS: LORazepam 2 MG/ML, 1ML IV PRN ×3 (08:33→22:28)
[2020-04-13 12:07] VITALS: BP 99/66
[2020-04-13] MEDS: BUTALB/APAP/CAFFEINE 50MG/325MG/40MG PO PRN (15:55)
[2020-04-13] MEDS: CEFDINIR 300 MG CAPSULE PO SCH (17:56)
[2020-04-13 18:58] VITALS: BP 148/67
[2020-04-13] MEDS: TRAZODONE 50MG TABLET PO SCH (20:11)
[2020-04-14 00:46] VITALS: BP 98/68
[2020-04-14 07:17] VITALS: BP 120/66
[2020-04-14] MEDS: CEFDINIR 300 MG CAPSULE PO SCH (07:39)
[2020-04-14 08:57] LABS: ALBUMIN 2.1 g/dL (3.4-5.0); ANION GAP 5 mmol/L (5-15); CALCIUM 8.5 mg/dL (8.5-10.1); CHLORIDE 108 mmol/L (98-107); CREATININE 0.53 mg/dL (0.55-1.02)
[2020-04-14] MEDS: SERTRALINE 50MG TABLET PO SCH (08:59)
[2020-04-14] MEDS: GABAPENTIN 100 MG CAPSULE PO SCH (08:59)
[2020-04-14] MEDS: NICOTINE 14MG/24 HR PATCH.TD24 TD SCH (08:59)
[2020-04-14] MEDS: LORazepam 2 MG/ML, 1ML IV PRN ×2 (09:06→13:00)
[2020-04-14 09:33] LABS: MD YES; MEAN CORPUSCULAR HGB CONC 32.7 g/dL (32.4-35.8); MEAN CORPUSCULAR VOLUME 97.9 fL (80-100); MEAN PLATELET VOLUME 9.9 fL (7.4-10.4); RED BLOOD COUNT 3.42 x10^6/uL (3.82-5.3)
[2020-04-14 09:42] LABS: PLATELET COUNT 30 x10^3/uL (130-400)
[2020-04-14 09:57] LABS: BASOS#(MANUAL) 0.06 x10^3/uL (0-0.1); BASOS% (MANUAL) 2 % (0-1); EOS#(MANUAL) 0.09 x10^3/uL (0.0-0.4); EOS% (MANUAL) 3 % (1-7); LYMPH#(MANUAL) 1.21 x10^3/uL (1-3.4); LYMPHS% (MANUAL) 39 % (22-44); MONOS#(MANUAL) 0.25 x10^3/uL (0.3-2.7); MONOS% (MANUAL) 8 % (2-9); SEG#(MANUAL) 1.49 x10^3/uL (1.8-6.8); SEGS% (MANUAL) 48 % (42-75)
[2020-04-14 09:58] LABS: <PLATELET ESTIMATE> DECREASED; <PLT MORPHOLOGY> NORMAL PLT MORPH; <RBC MORPHOLOGY> NORMAL
[2020-04-14 12:32] VITALS: BP 102/69
[2020-04-14] MEDS: BUTALB/APAP/CAFFEINE 50MG/325MG/40MG PO PRN (13:00)
== END 2020-04-14 15:58 | disposition left against medical advice (07) | DRG 872 ==
LOC: ED 04-11 00:27 → EDIP 04-11 03:59 → 4WST 04-11 04:00
PROVIDERS: ADMIT Family Medicine; ATTEND Family Medicine
DX: A41.9 Sepsis, unspecified organism (principal); E87.2 Acidosis; F10.239 Alcohol dependence with withdrawal, unspecified; N39.0 Urinary tract infection, site not specified; D69.6 Thrombocytopenia, unspecified; E83.42 Hypomagnesemia; E87.6 Hypokalemia; F10.229 Alcohol dependence with intoxication, unspecified; F15.129 Other stimulant abuse with intoxication, unspecified; F17.210 Nicotine dependence, cigarettes, uncomplicated; F32.9 Major depressive disorder, single episode, unspecified; F41.9 Anxiety disorder, unspecified; G40.909 Epilepsy, unspecified, not intractable, without status epilepticus; Z53.29 Procedure and treatment not carried out because of patient's decision for other reasons; Z79.899 Other long term (current) drug therapy; Z88.8 Allergy status to other drugs, medicaments and biological substances; Y90.9 Presence of alcohol in blood, level not specified
CPT/HCPCS: 36415; 71045; 80048; 80053; 80069; 80307; 81001; 83605; 83735; 84145; 84703; 85025; 87040; 87086; 93005; G0378; J0696; J1885; J2405; J2060; J3475; J7030

== ENCOUNTER 2020-04-17 01:13 | Emergency (ER) | payer MEDICAID ==
[~2020-04-17] VITALS: Ht 162.6 cm; Wt 60.8 kg
[2020-04-17 01:17] VITALS: BP 113/73
--- NOTE | 2020-04-17 02:14 | NUR ---
STRAIGHT CATH PERFORMED URINE SENT TO LAB
[2020-04-17 02:34] LABS: MEAN CORPUSCULAR HEMOGLOBIN 31.8 pg (27.0-34.8); MEAN CORPUSCULAR HGB CONC 32.7 g/dL (32.4-35.8); MEAN CORPUSCULAR VOLUME 97.2 fL (80-100); MEAN PLATELET VOLUME 9.3 fL (7.4-10.4); PLATELET COUNT 93 x10^3/uL (130-400); RED BLOOD COUNT 3.39 x10^6/uL (3.82-5.3); RED CELL DISTRIBUTION WIDTH 14.2 % (9.6-15.2)
[2020-04-17 02:35] LABS: MICROSCOPIC INDICATED
[2020-04-17 02:46] LABS: ALANINE AMINOTRANSFERASE 39 U/L (12-78); ALBUMIN 2.7 g/dL (3.4-5.0); ANION GAP 6 mmol/L (5-15); CALCIUM 8.5 mg/dL (8.5-10.1); CHLORIDE 109 mmol/L (98-107); CREATININE 0.56 mg/dL (0.55-1.02)
[2020-04-17 02:51] LABS: ALKALINE PHOSPHATASE 132 U/L (45-117); BILIRUBIN,TOTAL 1.4 mg/dL (0.2-1.0); TOTAL PROTEIN 7.1 g/dL (6.4-8.2)
[2020-04-17] MEDS ORDERED: IBUPROFEN 200 MG TABLET PO ONE (03:00)
[2020-04-17 03:18] LABS: BASOPHILS # (AUTO) 0.04 x10^3/uL (0-0.1); BASOPHILS % (AUTO) 1 % (0-1); EOSINOPHILS # (AUTO) 0.09 x10^3/uL (0-0.4); EOSINOPHILS % (AUTO) 3 % (1-7); LYMPHOCYTES # (AUTO) 1.18 x10^3/uL (1-3.4); LYMPHOCYTES % (AUTO) 36 % (22-44); MD SCAN; MONOCYTES % (AUTO) 9 % (2-9); NEUTROPHILS # (AUTO) 1.69 x10^3/uL (1.8-6.8); NEUTROPHILS % (AUTO) 51 % (42-75)
[2020-04-17] MEDS ORDERED: POTASSIUM CHLORIDE 20 MEQ TAB.ER.PRT ONE (03:32)
[2020-04-17] MEDS ORDERED: IBUPROFEN 200 MG TABLET ONE (03:32)
[2020-04-17] MEDS ORDERED: POTASSIUM CHLORIDE 20 MEQ TAB.ER.PRT PO SCH (08:00)
== END 2020-04-17 03:47 | disposition home or self-care (01) ==
LOC: ED 01:48
DX: F10.229 Alcohol dependence with intoxication, unspecified (principal); F15.20 Other stimulant dependence, uncomplicated; E87.6 Hypokalemia; Z72.9 Problem related to lifestyle, unspecified; Y90.9 Presence of alcohol in blood, level not specified
CPT/HCPCS: 36415; 80053; 80307; 81001; 84703; 85025; 87086; 99283

== ENCOUNTER 2020-07-27 13:08 | Emergency (ER) | payer MEDICAID ==
[~2020-07-27] VITALS: Ht 162.6 cm; Wt 53.9 kg
[~2020-07-27 13:08] MED LIST changes: -RISP0.5T3 PO; +RISP0.5T62 PO
[2020-07-27 13:15] VITALS: BP 118/74
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
[2020-07-27] MEDS ORDERED: PHENAZOPYRIDINE 200 MG TABLET ONE (13:30)
[2020-07-27] MEDS ORDERED: PHENAZOPYRIDINE 200 MG TABLET PO ONE (13:30)
[2020-07-27] MEDS ORDERED: PLEASE ENTER HEIGHT AND WEIGHT MC SCH (13:30)
[2020-07-27 13:38] LABS: MICROSCOPIC INDICATED
--- NOTE | 2020-07-27 13:41 | NUR ---
PT STATES "WILIAM MORA THE ONLY ONE THAT CAN HAVE INFO" REPORT TO OSMEL DORADO
--- NOTE | 2020-07-27 13:43 | NUR ---
ASSUMED CARE FROM ESTRADA GRANDA. PT RESTING IN [facility], REFUSING MONITORING, RYAN AT THIS TIME.
[2020-07-27 13:48] LABS: BASOPHILS % (AUTO) 1 % (0-1); EOSINOPHILS % (AUTO) 1 % (1-7); LYMPHOCYTES % (AUTO) 46 % (22-44); MEAN CORPUSCULAR HEMOGLOBIN 28.1 pg (27.0-34.8); MEAN CORPUSCULAR HGB CONC 32.9 g/dL (32.4-35.8); MEAN PLATELET VOLUME 9.1 fL (7.4-10.4); MONOCYTES % (AUTO) 10 % (2-9); NEUTROPHILS % (AUTO) 43 % (42-75); PLATELET COUNT 63 x10^3/uL (130-400); RED BLOOD COUNT 4.42 x10^6/uL (3.82-5.3); RED CELL DISTRIBUTION WIDTH 16.7 % (9.6-15.2)
[2020-07-27 13:51] LABS: MD NO
[2020-07-27] MEDS ORDERED: LORazepam 1MG TABLET PO ONE (14:00)
[2020-07-27 14:01] LABS: ALBUMIN 3.5 g/dL (3.4-5.0); ANION GAP 5 mmol/L (5-15); CALCIUM 8.8 mg/dL (8.5-10.1); CHLORIDE 111 mmol/L (98-107)
[2020-07-27] MEDS ORDERED: LORazepam 1MG TABLET ONE (14:06)
[2020-07-27 14:08] LABS: ALANINE AMINOTRANSFERASE 44 U/L (12-78); ALKALINE PHOSPHATASE 107 U/L (45-117); BILIRUBIN,TOTAL 0.7 mg/dL (0.2-1.0); CREATININE 0.69 mg/dL (0.55-1.02); TOTAL PROTEIN 8.4 g/dL (6.4-8.2)
== END 2020-07-27 15:10 | disposition home or self-care (01) ==
LOC: ED 14:41
DX: F10.10 Alcohol abuse, uncomplicated (principal); F15.10 Other stimulant abuse, uncomplicated; N30.00 Acute cystitis without hematuria; F41.9 Anxiety disorder, unspecified; E87.6 Hypokalemia; F17.210 Nicotine dependence, cigarettes, uncomplicated; Y90.0 Blood alcohol level of less than 20 mg/100 ml
CPT/HCPCS: 36415; 80053; 81001; 84703; 85025; 87077; 87086; 87186; 99283

== ENCOUNTER 2020-08-03 00:08 | Emergency (ER) | payer MEDICAID ==
[~2020-08-03] VITALS: Ht 167.6 cm; Wt 60.8 kg
[2020-08-03] MEDS ORDERED: ZIPRASIDONE 20 MG INJ IM ONE ×2 (00:15→00:30)
[2020-08-03] MEDS ORDERED: LORazepam 2 MG/ML, 1ML ONE (00:16)
[2020-08-03] MEDS ORDERED: LORazepam 2 MG/ML, 1ML IM ONE (00:30)
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
--- NOTE | 2020-08-03 01:05 | NUR ---
report to kailee
--- NOTE | 2020-08-03 01:15 | NUR ---
restraints removed, pt cooperative and very sleepy at this time
[2020-08-03 01:17] LABS: BASOPHILS % (AUTO) 1 % (0-1); EOSINOPHILS % (AUTO) 3 % (1-7); LYMPHOCYTES % (AUTO) 34 % (22-44); MEAN CORPUSCULAR HEMOGLOBIN 28.7 pg (27.0-34.8); MEAN PLATELET VOLUME 9.8 fL (7.4-10.4); MONOCYTES % (AUTO) 10 % (2-9); NEUTROPHILS % (AUTO) 53 % (42-75); RED BLOOD COUNT 3.67 x10^6/uL (3.82-5.3); RED CELL DISTRIBUTION WIDTH 17.2 % (9.6-15.2)
[2020-08-03 01:29] LABS: ALANINE AMINOTRANSFERASE 36 U/L (12-78); ALBUMIN 3.1 g/dL (3.4-5.0); ANION GAP 7 mmol/L (5-15); CALCIUM 8.6 mg/dL (8.5-10.1); CHLORIDE 110 mmol/L (98-107); CREATININE 0.51 mg/dL (0.55-1.02)
[2020-08-03 01:34] LABS: ALKALINE PHOSPHATASE 94 U/L (45-117); BILIRUBIN,TOTAL 0.6 mg/dL (0.2-1.0); TOTAL PROTEIN 7.4 g/dL (6.4-8.2)
--- NOTE | 2020-08-03 01:34 | NUR ---
pt placed in hospital gown, sleeping soundly with no complaints, one bag of belongings placed in safekeeping, sitter at bedside, pt on monitors with vss
[2020-08-03 01:35] LABS: SALICYLATE LEVEL < 1.7 mg/dL (2.8-20.0)
[2020-08-03 01:50] LABS: PLATELET COUNT 33 x10^3/uL (130-400)
[2020-08-03 01:51] LABS: MD SCAN
[2020-08-03] MEDS ORDERED: THIAMINE 100MG TABLET PO ONE (02:00)
[2020-08-03] MEDS ORDERED: POTASSIUM CHLORIDE 20 MEQ TAB.ER.PRT PO ONE (02:00)
--- NOTE | 2020-08-03 02:03 | NUR ---
PT. RESTING ON GURNEY WITH EYES CLOSED. NO DISTRESS VISIBLE. RESPIRATIONS EVEN, NON-LABORED. PT. IS ON A NIGHT CLUB MANAGER; SINUS TACH NOTED; NO ECTOPY NOTED. SITTER IN [place] IN DIRECT VIEW.
--- NOTE | 2020-08-03 03:34 | NUR ---
pt sleeping soundly, chest rise and fall observed, sitter at bedside, no complaints
--- NOTE | 2020-08-03 04:27 | NUR ---
attempted to wake pt for medication, pt rousable but will not stay alert enough for oral medication, per ERP we will give more time for her to metabolize to alertness. VSS, sitter at bedside, no complaints.
[2020-08-03] MEDS ORDERED: THIAMINE 100MG TABLET ONE (06:17)
[2020-08-03] MEDS ORDERED: POTASSIUM CHLORIDE 20 MEQ TAB.ER.PRT ONE (06:17)
--- NOTE | 2020-08-03 06:23 | NUR ---
pt medicated, alert, oriented and calm at this time, vss, sitter at bedside
--- NOTE | 2020-08-03 06:50 | NUR ---
REPORT RECEIVED FROM PAMELA Harley RN
--- NOTE | 2020-08-03 07:30 | NUR ---
PT RESTING ON SIDE ON ED GURNEY. EVEN RISE AND FALL OF CHEST NOTED. NAD. PT IN FULL VIEW OF SITTER. ROOM SECURED.
--- NOTE | 2020-08-03 09:10 | NUR ---
PT RSTING ON ED GURNEY WITH EYES CLOSED. VSS STABLE.
[2020-08-03 10:20] VITALS: BP 97/68
--- NOTE | 2020-08-03 10:21 | NUR ---
PT BREAKFAST TRAY DELIVERED
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
--- NOTE | 2020-08-03 12:45 | NUR ---
PT REC'VD DISCHARGE EDUCATION AND INSTRUCTIONS. PT HAD NO FURTHER QUESTIONS. PT AMBULATED TO DC AREA, STEADY GAIT.
== END 2020-08-03 13:15 | disposition home or self-care (01) ==
LOC: ED 00:26
DX: F15.159 Other stimulant abuse with stimulant-induced psychotic disorder, unspecified (principal); R45.851 Suicidal ideations; E87.6 Hypokalemia; D64.9 Anemia, unspecified; F22 Delusional disorders
CPT/HCPCS: 36415; 80053; 80299; 80320; 80329; 84703; 85025; 96372; 99285; J2060; J3486; G0480

== ENCOUNTER 2020-11-24 01:43 | Inpatient (IN) | payer MEDICAID ==
[~2020-11-24] VITALS: Ht 165.1 cm; Wt 76.1 kg
[~2020-11-24 01:43] MED LIST changes: +SERT-331 PO; -SERT25TA3 PO
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
--- NOTE | 2020-11-24 02:10 | NUR ---
BEDSIDE REPORT TO ESTRADA CORREIA.
[2020-11-24] MEDS ORDERED: SODIUM CHLORIDE 0.9% 1,000ML IVBOLUS ONE ×2 (02:30→07:00)
[2020-11-24] MEDS ORDERED: SODIUM CHLORIDE FLUSH 10ML SYR IVF ONE (02:30)
[2020-11-24 02:40] LABS: BASOPHILS % (AUTO) 1 % (0-1); EOSINOPHILS % (AUTO) 1 % (1-7); LYMPHOCYTES % (AUTO) 39 % (22-44); MEAN CORPUSCULAR HEMOGLOBIN 28.7 pg (27.0-34.8); MEAN PLATELET VOLUME 8.3 fL (7.4-10.4); MONOCYTES % (AUTO) 8 % (2-9); NEUTROPHILS % (AUTO) 51 % (42-75); PLATELET COUNT 61 x10^3/uL (130-400); RED BLOOD COUNT 4.06 x10^6/uL (3.82-5.3); RED CELL DISTRIBUTION WIDTH 15.5 % (9.6-15.2)
[2020-11-24 02:44] LABS: MD NO
[2020-11-24 02:51] LABS: ALANINE AMINOTRANSFERASE 34 U/L (12-78); ALBUMIN 3.6 g/dL (3.4-5.0); ANION GAP 10 mmol/L (5-15); CALCIUM 8.8 mg/dL (8.5-10.1); CHLORIDE 111 mmol/L (98-107); CREATININE 0.67 mg/dL (0.55-1.02); SALICYLATE LEVEL < 1.7 mg/dL (2.8-20.0)
[2020-11-24 02:53] LABS: ALKALINE PHOSPHATASE 126 U/L (45-117); BILIRUBIN,TOTAL 0.8 mg/dL (0.2-1.0); TOTAL PROTEIN 7.5 g/dL (6.4-8.2)
--- NOTE | 2020-11-24 03:27 | NUR ---
PT FULLY UNDRESSED AND CLOTHES BAGGED AND PLACED IN APPROPRIATE BIN IN LOCKER.
--- NOTE | 2020-11-24 04:25 | NUR ---
PT SLEEPING ON LEFT SIDE. VSS. ALL MONITORING IN PLACE, IV FLUIDS INFUSING. SITTER AT DOORWAY AND WILL CONT TO MONITOR.
--- NOTE | 2020-11-24 05:21 | NUR ---
RECIEVED REPORT FROM BREN DORADO.
--- NOTE | 2020-11-24 05:59 | NUR ---
PT RESTING IN BED BILATERAL CHEST RISE AND FALL. VSS.
[2020-11-24] MEDS ORDERED: LORazepam 2 MG/ML, 1ML ONE (06:24)
[2020-11-24] MEDS ORDERED: DIPHENHYDRAMINE 50 MG/ML, 1ML ONE (06:24)
--- NOTE | 2020-11-24 06:28 | NUR ---
PT AWOKE YELLING FOR WATER AND STATING HER HEART WAS RACING FOUND TO BE HR IN THE 170. DR SHAFER CALLED TO BEDSIDE. NEW ORDERS RECIEVED AND MEDICATED PER EMAR. HR AT THIS TIME AT 130/SINUS TACHYCARDIA. CRASH CART BROUGHT INTO ROOM.
[2020-11-24] MEDS ORDERED: LORazepam 2 MG/ML, 1ML IVPush ONE (06:30)
[2020-11-24] MEDS ORDERED: DIPHENHYDRAMINE 50 MG/ML, 1ML IV ONE (06:30)
--- NOTE | 2020-11-24 06:37 | NUR ---
PER DR. HOLLIS MORENO TO BE ADMIN; HOLD ATIVAN FOR NOW AND RE-EVAL. PT. DRANK 2 CUPS OF WATER AND C/O DRY MOUTH.
--- NOTE | 2020-11-24 07:09 | NUR ---
REPORT TO ESTRADA GREENE TO ASSUME CARE OF PT. AT THIS TIME. PER DR. SHAFER PT. TO BE CARD TELE ADMIT.
--- NOTE | 2020-11-24 07:10 | NUR ---
assumed care of pt. report from Alma DORADO pt here for SI/SA. 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 +tachycardic on monitor. room secure and sitter present for safety. awaiting test results. no family at bedside
[2020-11-24] MEDS ORDERED: LORazepam 2 MG/ML, 1ML IVPush PRN (08:00)
[2020-11-24] MEDS ORDERED: ACETAMINOPHEN 325 MG TABLET PO PRN (08:00)
[2020-11-24] MEDS ORDERED: DILTIAZEM 5 MG/ML, 5ML IVPush ONE ×2 (08:00)
--- NOTE | 2020-11-24 08:00 | NUR ---
no changes. pt still sleeping. moving around intermittently on gurney. no apparent distress room secure. sitter present for safety
--- NOTE | 2020-11-24 08:16 | NUR ---
admit orders have been recieved with bed assignment. attemptng to call report
--- NOTE | 2020-11-24 08:34 | NUR ---
report called to Mavis DORADO
--- NOTE | 2020-11-24 08:40 | NUR ---
attempted to deliver pt meal tray, pt arousable, but declines at this time
[2020-11-24] MEDS ORDERED: POTASSIUM CHLORIDE 20 MEQ TAB.ER.PRT PO SCH (09:30)
[2020-11-24] MEDS: LORazepam 2 MG/ML, 1ML IVPush PRN ×3 (09:33→20:16)
[2020-11-24 12:02] VITALS: BP 117/72
[2020-11-24] MEDS ORDERED: MAGNESIUM SULFATE PMX 4GM/100M 100 ML IVPB ONE (14:00)
[2020-11-24 15:17] LABS: TROPONIN I < 0.015 ng/mL (0.000-0.045)
[2020-11-24] MEDS ORDERED: POTASSIUM CHLORIDE 20 MEQ TAB.ER.PRT ONE ×2 (15:25→15:28)
[2020-11-24] MEDS: NS + 20MEQ KCL 1,000 ML IV SCH ×2 (15:27→20:16)
[2020-11-24 16:31] LABS: AMPHETAMINE SCREEN, URINE Positive (Negative); BARBITURATE SCREEN, URINE Negative (Negative); BENZODIAZEPINE SCREEN, URINE Negative (Negative); CANNABINOID SCREEN, URINE Positive (Negative); COCAINE SCREEN, URINE Negative (Negative); METHADONE SCREEN, URINE Negative (Negative); OPIATE SCREEN, URINE Negative (Negative)
[2020-11-24 18:44] VITALS: BP 115/72
[2020-11-24 20:12] LABS: TROPONIN I < 0.015 ng/mL (0.000-0.045)
[2020-11-25 00:55] VITALS: BP 128/88
[2020-11-25] MEDS: NS + 20MEQ KCL 1,000 ML IV SCH ×3 (04:47→19:00)
[2020-11-25] MEDS: LORazepam 2 MG/ML, 1ML IVPush PRN ×2 (08:48→13:19)
[2020-11-25] MEDS: DILTIAZEM 60 MG TABLET PO SCH ×2 (08:48→17:12)
[2020-11-25 09:00] VITALS: BP 108/71
[2020-11-25] MEDS ORDERED: MAGNESIUM SULFATE PMX 4GM/100M 100 ML IVPB ONE (12:00)
[2020-11-25] MEDS ORDERED: LORazepam 2 MG/ML, 1ML IV PRN ×3 (14:30)
[2020-11-25 14:37] VITALS: BP 121/85
[2020-11-25] MEDS: CHLORDIAZEPOXIDE 10 MG CAPSULE PO SCH ×2 (14:46→21:22)
[2020-11-25 18:40] VITALS: BP 116/78
[2020-11-25] MEDS ORDERED: DIPHENHYDRAMINE 50 MG CAPSULE PO ONE (21:00)
[2020-11-26] MEDS: DILTIAZEM 60 MG TABLET PO SCH ×2 (00:26→00:30)
[2020-11-26] MEDS: LORazepam 2 MG/ML, 1ML IV PRN ×5 (00:26→16:02)
[2020-11-26 00:57] LABS: HCG UR SG 1.009 (1.003-1.030)
[2020-11-26] MEDS ORDERED: HYDROCORTISONE 100 MG INJ. IVPush ONE (01:30)
[2020-11-26] MEDS: NS + 20MEQ KCL 1,000 ML IV SCH ×4 (01:40→21:40)
[2020-11-26 04:00] VITALS: BP 120/86
[2020-11-26 05:25] LABS: CHLORIDE 110 mmol/L (98-107)
[2020-11-26 05:40] LABS: ANION GAP 7 mmol/L (5-15); CALCIUM 9.1 mg/dL (8.5-10.1); CREATININE 0.75 mg/dL (0.55-1.02)
[2020-11-26 08:10] VITALS: BP 113/76
[2020-11-26] MEDS ORDERED: DIAZEPAM 5 MG TABLET PO ONE (09:00)
[2020-11-26] MEDS ORDERED: LORazepam 1MG TABLET PO PRN ×4 (09:00)
[2020-11-26] MEDS: MULTIVITAMINS/MINERALS TABLET PO SCH (10:36)
[2020-11-26] MEDS: CYANOCOBALAMIN 1,000 MCG TABLET PO SCH (10:36)
[2020-11-26 14:01] VITALS: BP 127/82
[2020-11-26 19:36] VITALS: BP 100/68
[2020-11-26] MEDS: NICOTINE 21 MG/24 HR PATCH.TD24 TD SCH (20:09)
[2020-11-26] MEDS: ACETAMINOPHEN 325 MG TABLET PO PRN (20:10)
[2020-11-26] MEDS: DIPHENHYDRAMINE 50 MG/ML, 1ML IVPush PRN (20:27)
[2020-11-26] MEDS: LORazepam 0.5MG TABLET PO PRN (20:29)
[2020-11-27 00:54] VITALS: BP 109/83
[2020-11-27] MEDS ORDERED: DIPHENHYDRAMINE 50 MG/ML, 1ML IVPush PRN (04:00)
[2020-11-27] MEDS: ACETAMINOPHEN 325 MG TABLET PO PRN (04:32)
[2020-11-27] MEDS: NS + 20MEQ KCL 1,000 ML IV SCH ×2 (04:37→11:55)
[2020-11-27] MEDS: LORazepam 0.5MG TABLET PO PRN ×4 (04:42→20:28)
[2020-11-27 05:12] LABS: BASOPHILS % (AUTO) 1 % (0-1); EOSINOPHILS % (AUTO) 3 % (1-7); LYMPHOCYTES % (AUTO) 37 % (22-44); MEAN CORPUSCULAR HEMOGLOBIN 29.4 pg (27.0-34.8); MEAN CORPUSCULAR HGB CONC 34.5 g/dL (32.4-35.8); MEAN PLATELET VOLUME 8.8 fL (7.4-10.4); MONOCYTES % (AUTO) 9 % (2-9); NEUTROPHILS % (AUTO) 52 % (42-75); RED BLOOD COUNT 4.26 x10^6/uL (3.82-5.3); RED CELL DISTRIBUTION WIDTH 15.5 % (9.6-15.2)
[2020-11-27 05:20] LABS: ALBUMIN 3.3 g/dL (3.4-5.0); ANION GAP 7 mmol/L (5-15); CALCIUM 9.1 mg/dL (8.5-10.1); CHLORIDE 109 mmol/L (98-107)
[2020-11-27 05:23] LABS: ALANINE AMINOTRANSFERASE 32 U/L (12-78); ALKALINE PHOSPHATASE 118 U/L (45-117); BILIRUBIN,TOTAL 0.8 mg/dL (0.2-1.0); TOTAL PROTEIN 6.9 g/dL (6.4-8.2)
[2020-11-27 06:06] LABS: PLATELET COUNT 47 x10^3/uL (130-400)
[2020-11-27 06:07] LABS: MD SCAN
[2020-11-27 06:58] VITALS: BP 119/82
[2020-11-27 07:50] VITALS: BP 117/87
[2020-11-27] MEDS: CYANOCOBALAMIN 1,000 MCG TABLET PO SCH (08:40)
[2020-11-27] MEDS: MULTIVITAMINS/MINERALS TABLET PO SCH (08:40)
[2020-11-27] MEDS ORDERED: THIAMINE 100 MG in DEXTROSE 5% 50 ML IVPB SCH (09:00)
[2020-11-27] MEDS ORDERED: THIAMINE 100MG TABLET PO SCH (09:30)
[2020-11-27 13:00] VITALS: BP 114/77
[2020-11-27] MEDS: NICOTINE 21 MG/24 HR PATCH.TD24 TD SCH (19:00)
[2020-11-27 19:12] VITALS: BP 132/72
[2020-11-27] MEDS: DIPHENHYDRAMINE 50 MG/ML, 1ML IVPush PRN (20:28)
[2020-11-28 03:41] VITALS: BP 107/71
[2020-11-28 05:16] LABS: BASOPHILS % (AUTO) 1 % (0-1); EOSINOPHILS % (AUTO) 4 % (1-7); LYMPHOCYTES % (AUTO) 37 % (22-44); MEAN CORPUSCULAR HEMOGLOBIN 29.3 pg (27.0-34.8); MEAN CORPUSCULAR HGB CONC 33.9 g/dL (32.4-35.8); MEAN PLATELET VOLUME 8.8 fL (7.4-10.4); MONOCYTES % (AUTO) 11 % (2-9); NEUTROPHILS % (AUTO) 48 % (42-75); PLATELET COUNT 51 x10^3/uL (130-400); RED BLOOD COUNT 4.31 x10^6/uL (3.82-5.3); RED CELL DISTRIBUTION WIDTH 15.4 % (9.6-15.2)
[2020-11-28 05:19] LABS: MD NO
[2020-11-28 05:25] LABS: CALCIUM 8.8 mg/dL (8.5-10.1); CHLORIDE 111 mmol/L (98-107)
[2020-11-28 05:29] LABS: ANION GAP 4 mmol/L (5-15); CREATININE 0.72 mg/dL (0.55-1.02)
[2020-11-28 07:30] LABS: CHOL/HDL RATIO 2.6; LDL/HDL RATIO 1.3 (0.5-3.0)
[2020-11-28] MEDS ORDERED: MAGNESIUM SULFATE PMX 4GM/100M 100 ML IVPB ONE (07:30)
[2020-11-28 07:52] VITALS: BP 104/71
[2020-11-28] MEDS: MULTIVITAMINS/MINERALS TABLET PO SCH (08:13)
[2020-11-28] MEDS: CYANOCOBALAMIN 1,000 MCG TABLET PO SCH (08:13)
[2020-11-28] MEDS ORDERED: MAGNESIUM OXIDE 400 MG TABLET PO SCH (09:00)
[2020-11-28] MEDS ORDERED: THIAMINE 100MG TABLET PO SCH (09:00)
[2020-11-28 12:45] VITALS: BP 107/71
[2020-11-28] MEDS ORDERED: THIA100T67 PO (16:20)
[2020-11-28] MEDS ORDERED: MAGN400T50 PO (16:20)
[2020-11-28] MEDS ORDERED: FOLI1TAB32 PO (16:20)
== END 2020-11-28 19:01 | DRG 918 ==
LOC: ED 02:28 → SUATTDRO 07:08 → INTOOBSV 07:08 → ORIP 07:08 → 4WST 09:15 → OBSVTOIN 10:29
PROVIDERS: ADMIT Internal Medicine; ATTEND Internal Medicine
DX: T43.592A Poisoning by other antipsychotics and neuroleptics, intentional self-harm, initial encounter (principal); F10.131 Alcohol abuse with withdrawal delirium; D69.59 Other secondary thrombocytopenia; E83.42 Hypomagnesemia; E87.6 Hypokalemia; F12.90 Cannabis use, unspecified, uncomplicated; F15.90 Other stimulant use, unspecified, uncomplicated; F32.9 Major depressive disorder, single episode, unspecified; F10.129 Alcohol abuse with intoxication, unspecified; G62.9 Polyneuropathy, unspecified; F19.10 Other psychoactive substance abuse, uncomplicated; Y90.9 Presence of alcohol in blood, level not specified; Z88.8 Allergy status to other drugs, medicaments and biological substances; Y92.89 Other specified places as the place of occurrence of the external cause
CPT/HCPCS: 36415; 80048; 80053; 80061; 80299; 80307; 80320; 80329; 81025; 83735; 84100; 84443; 84484; 84703; 85025; 85379; 93005; 93017; 93306; G0378; J3411; J3480; G0480; J1200; J2060; J3475; J7030

== ENCOUNTER 2020-12-19 17:40 | Emergency (ER) | payer MEDICAID ==
[~2020-12-19] VITALS: Ht 162.6 cm; Wt 70.0 kg
[~2020-12-19 17:40] MED LIST changes: +FOLI1TAB32 PO; +MAGN400T50 PO; +THIA100T67 PO
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
[2020-12-19] MEDS ORDERED: DIPHENHYDRAMINE 50 MG CAPSULE ONE (18:21)
[2020-12-19] MEDS ORDERED: LORazepam 1MG TABLET ONE ×2 (18:21→18:24)
--- NOTE | 2020-12-19 18:25 | NUR ---
PT REFUSED LAB AT THIS TIME
[2020-12-19] MEDS ORDERED: LORazepam 1MG TABLET PO ONE (18:30)
[2020-12-19] MEDS ORDERED: DIPHENHYDRAMINE 50 MG CAPSULE PO PRN (18:30)
--- NOTE | 2020-12-19 18:31 | NUR ---
PT MEDICATED PER ORDER, TOLERATED WELL. RESPS EVEN AND UNLABORED, SLIGHTLY AGITATED BUT NO COMPLAINTS AT THIS TIME.
[2020-12-19 18:34] LABS: MICROSCOPIC INDICATED
[2020-12-19 18:43] LABS: AMPHETAMINE SCREEN, URINE Positive (Negative); BARBITURATE SCREEN, URINE Negative (Negative); BENZODIAZEPINE SCREEN, URINE Positive (Negative); CANNABINOID SCREEN, URINE Positive (Negative); COCAINE SCREEN, URINE Negative (Negative); METHADONE SCREEN, URINE Negative (Negative); OPIATE SCREEN, URINE Negative (Negative)
--- NOTE | 2020-12-19 18:52 | NUR ---
REPORT GIVEN TO RADHA DORADO
[2020-12-19 19:07] LABS: BASOPHILS % (AUTO) 1 % (0-1); EOSINOPHILS % (AUTO) 1 % (1-7); LYMPHOCYTES % (AUTO) 29 % (22-44); MD NO; MEAN CORPUSCULAR HEMOGLOBIN 28.9 pg (27.0-34.8); MEAN CORPUSCULAR HGB CONC 34.2 g/dL (32.4-35.8); MEAN PLATELET VOLUME 8.7 fL (7.4-10.4); MONOCYTES % (AUTO) 11 % (2-9); NEUTROPHILS % (AUTO) 59 % (42-75); PLATELET COUNT 99 x10^3/uL (130-400); RED BLOOD COUNT 4.64 x10^6/uL (3.82-5.3); RED CELL DISTRIBUTION WIDTH 16.4 % (9.6-15.2)
[2020-12-19 19:11] LABS: ALANINE AMINOTRANSFERASE 62 U/L (12-78); ALBUMIN 4.1 g/dL (3.4-5.0); ANION GAP 11 mmol/L (5-15); CALCIUM 8.8 mg/dL (8.5-10.1); CHLORIDE 104 mmol/L (98-107); CREATININE 0.76 mg/dL (0.55-1.02)
[2020-12-19 19:15] LABS: ALKALINE PHOSPHATASE 173 U/L (45-117); BILIRUBIN,TOTAL 1.4 mg/dL (0.2-1.0); TOTAL PROTEIN 8.6 g/dL (6.4-8.2)
[2020-12-19 19:16] LABS: SALICYLATE LEVEL < 1.7 mg/dL (2.8-20.0)
--- NOTE | 2020-12-19 19:30 | NUR ---
PT RESTING IN BED, ROOM PSYCH SECURE, PT DENIES ANY WANTS OR NEEDS.
[2020-12-20 00:53] VITALS: BP 125/72
--- NOTE | 2020-12-20 00:58 | NUR ---
PATIENT AWAKE, BREATHERLIZED AT 0.048, AND GIVEN APPLE JUICE AND WATER. PATIENT RESTING COMFORTABLY IN ON GURENY
--- NOTE | 2020-12-20 02:25 | NUR ---
PT DENIES SI/HI AT THIS TIME, RESTING COMFORTABLY ON GURENY IN PSYCH SECURE ROOM
--- NOTE | 2020-12-20 03:19 | NUR ---
PT GIVEN D/C INSTRUCTIONS, BOTH VERBAL AND WRITTEN. PT COMPLAINING OF D/TS AND WANTING TO STAY HALF HOUR TO "GET OVER THEM", PT ONLY SHAKING WHEN AWAKE. PT AMBULATED OUT WITHOUT S/S OF DISTRESS, CAB VOUCHER GIVEN TO WOMEN'S DETENTION
== END 2020-12-20 03:25 | disposition home or self-care (01) ==
LOC: ED 18:24
DX: F15.159 Other stimulant abuse with stimulant-induced psychotic disorder, unspecified (principal); F10.229 Alcohol dependence with intoxication, unspecified; F41.9 Anxiety disorder, unspecified; F17.200 Nicotine dependence, unspecified, uncomplicated; Y90.0 Blood alcohol level of less than 20 mg/100 ml
CPT/HCPCS: 36415; 80053; 80299; 80307; 80320; 80329; 81001; 84703; 85025; 87086; 99283; G0480

== ENCOUNTER 2021-04-14 00:50 | Emergency (ER) | payer MEDICAID ==
[~2021-04-14] VITALS: Ht 160 cm; Wt 63.5 kg
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
[2021-04-14] MEDS ORDERED: ONDANSETRON ODT 4 MG PO ONE (02:00)
[2021-04-14] MEDS ORDERED: THIAMINE 100MG TABLET PO ONE (02:00)
[2021-04-14] MEDS ORDERED: ONDANSETRON ODT 4 MG ONE (02:10)
[2021-04-14] MEDS ORDERED: THIAMINE 100MG TABLET ONE (02:11)
[2021-04-14 02:17] LABS: HCG UR SG 1.023 (1.003-1.030)
[2021-04-14 02:20] LABS: BASOPHILS % (AUTO) 1 % (0-1); EOSINOPHILS % (AUTO) 4 % (1-7); LYMPHOCYTES % (AUTO) 43 % (22-44); MEAN CORPUSCULAR HEMOGLOBIN 31.4 pg (27.0-34.8); MEAN CORPUSCULAR HGB CONC 33.3 g/dL (32.4-35.8); MEAN PLATELET VOLUME 8.9 fL (7.4-10.4); MONOCYTES % (AUTO) 11 % (2-9); NEUTROPHILS % (AUTO) 43 % (42-75); RED BLOOD COUNT 4.12 x10^6/uL (3.82-5.3)
[2021-04-14 02:32] LABS: PLATELET COUNT 49 x10^3/uL (130-400)
[2021-04-14 02:33] LABS: ALBUMIN 2.7 g/dL (3.4-5.0); ANION GAP 5 mmol/L (5-15); CALCIUM 8.3 mg/dL (8.5-10.1); CHLORIDE 112 mmol/L (98-107)
[2021-04-14 02:37] LABS: ALANINE AMINOTRANSFERASE 66 U/L (12-78); ALKALINE PHOSPHATASE 115 U/L (45-117); BILIRUBIN,TOTAL 0.7 mg/dL (0.2-1.0); CREATININE 0.51 mg/dL (0.55-1.02); TOTAL PROTEIN 6.9 g/dL (6.4-8.2)
[2021-04-14 02:46] LABS: MICROSCOPIC INDICATED
[2021-04-14 03:01] LABS: AMPHETAMINE SCREEN, URINE Positive (Negative); BARBITURATE SCREEN, URINE Negative (Negative); BENZODIAZEPINE SCREEN, URINE Positive (Negative); CANNABINOID SCREEN, URINE Negative (Negative); COCAINE SCREEN, URINE Negative (Negative); METHADONE SCREEN, URINE Negative (Negative); OPIATE SCREEN, URINE Negative (Negative)
[2021-04-14] MEDS ORDERED: CIPROFLOXACIN 500 MG TABLET PO ONE (04:00)
[2021-04-14] MEDS ORDERED: CIPROFLOXACIN 500 MG TABLET ONE (04:18)
[2021-04-14 04:27] VITALS: BP 128/65
== END 2021-04-14 04:29 | disposition home or self-care (01) ==
LOC: ED 03:34
DX: N30.00 Acute cystitis without hematuria (principal); D69.3 Immune thrombocytopenic purpura; F15.10 Other stimulant abuse, uncomplicated; E87.6 Hypokalemia; Z72.9 Problem related to lifestyle, unspecified
CPT/HCPCS: 36415; 80053; 80307; 80320; 81001; 81025; 85025; 87077; 87086; 87186; 99284; Q0162; G0480